=== PATIENT | male | born 1955 | race Caucasian/White ===

== ENCOUNTER 2023-11-17 15:15 | Oncology outpatient (recurring) (ONCR) | payer OTHER, SELFPAY ==
--- NOTE | 2023-11-09 16:42 | N.ONRAD NP_ITS ---
Radiation Oncology New Patient Visit Patient: Joanna Burnett MR#: [id number] : 1955> Age: 67> Sex: Male> Dictated by: Jett Soares Date of Service: 11/09/2023 Referring Physician(s) : Sincere Diaz MD urologist Diagnosis: C61 - malignant neoplasm of prostate, Diagnosed 09/30/2023 (active). Radiotherapy to date: Summary > No prior radiation therapy. Chief Complaint / History of Present Illness: Patient reports a history of gradually elevating PSA. Records indicate his last PSA was 19 with a prostate volume of 65 g. Ultrasound-guided biopsy of the prostate September 30, 2023 revealed adenocarcinoma in 1 core in the right apex, [place] 7 (3+4) grade group 2. PSMA PET scan October 18, 2023 revealed a 5 cm diameter prostate with a maximum SUV 5.8 in the anterior apex. The right anterior and posterior transition zone at the mid level demonstrated a maximum SUV value of 24.95. There was no pathologic lymphadenopathy. No focal abnormality of tracer accumulation was identified in bones or muscle. The patient is present today with his of 33 years. International prostate symptom score was 29 with sensation of incomplete emptying and weak stream as his worst complaint. Overall quality of life due to urinary symptoms was rated at 6 (terrible). Patient reports that he is not sexually active. Current Medications: Lisinopril, vitamin D3, tamsulosin, Crestor, isosorbide, Effexor, Jardiance, co-Q10, multivitamin, nitroglycerin, fish oil, and aspirin 81 mg. Medical History: No history of collagen vascular disease. No previous radiation therapy. History of elevated triglycerides and heart disease. Surgical History: Cardiac stent placed 2011, fractured jaw in the , varicose vein surgery around 1993, hernia surgery also around 1993. Family History: Patient states he is adopted. 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 He is a non-smoker and drinks about a sixpack of beer per week. He was in the [employer] and stationed in [place]. 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 He grew up in [facility]. He and his owns 40 acres locally and enjoyed gardening. Current Complaints / Review of Systems: . Vital Signs: Performed on 11/09/2023 3:21 PM Weight - 197.8 lbs, Temperature - 97.7 f, Pulse - 65 /min, Respiration - 18 /min, O2 Sat - 95 % (low), Pain - 0, Fatigue - 0 and BP - 137/ 70 mm(hg). Physical Exam: Alert and oriented male appearing his stated age. PERRL, EOMI. Cranial nerves II through XII grossly intact. Tongue and uvula midline and mobile. Speech intact. No cervical, supraclavicular or axillar adenopathy. Lungs clear to auscultation. Cardiovascular Drew reveals regular rhythm. Abdomen soft nontender. Bowel sounds present normoactive. Patient declines rectal exam. Upper and lower extremities intact without edema. Patient ambulatory without assistance. Performance Status: ECOG 0 Pathology: Primary, c61 - malignant neoplasm of prostate, Diagnosed 09/30/2023 (active) . Impression: Patient has a favorable intermediate stage IIB T1 N0 M0 adenocarcinoma of the prostate involving 1 core at the right apex, [place] 7 (3+4) grade group 2. His PSA was 19 ng/mL. Plan: Patient is a candidate for definitive radiation therapy. He has an appointment with medical oncology to discuss possibility of androgen deprivation therapy. The potential risks, benefits and side effects of external beam radiation therapy were reviewed with the patient and his was also present. Patient indicates his understanding and willingness to proceed with treatment. He indicates he is undecided yet about whether or not to undergo androgen deprivation therapy. If he elects to undergo androgen deprivation therapy treatment planning would take place about 1 month after the start of ADT. Plan would be to deliver hypofractionated radiation therapy (IMRT) of 70 Reid total at 250 cGy per fraction over 28 fractions. Signed by: 11/09/2023 4:40:59 PM <<Signature on File>> Time spent with patient: 60 minutes CPT Code: CPT Code:
[2023-11-17] MEDS: leuprolide 22.5 mg Kit IM (15:57)
== END 2023-11-17 23:59 | disposition home or self-care (01) ==
PROVIDERS: PCP Nurse Practitioner Family; Visit Provider Radiology Radiation Oncology
DX: Z51.11 Encounter for antineoplastic chemotherapy (principal); C61 Malignant neoplasm of prostate; Z79.899 Other long term (current) drug therapy; Z53.9 Procedure and treatment not carried out, unspecified reason
CPT/HCPCS: 77300; 77301; 77338; 96401; 99205; J9217

== ENCOUNTER 2023-12-15 08:00 | Oncology outpatient (recurring) (ONCR) | payer OTHER, SELFPAY | END 2023-12-18 23:59 | disposition home or self-care (01) | PROVIDERS: Internal Medicine Medical Oncology; PCP Nurse Practitioner Family; Visit Provider Radiology Radiation Oncology | DX: Z51.0 Encounter for antineoplastic radiation therapy (principal); C61 Malignant neoplasm of prostate | CPT/HCPCS: 36415; 77334; 77470; 84153 ==

== ENCOUNTER 2023-12-29 08:34 | Oncology outpatient (recurring) (ONCR) | payer OTHER, SELFPAY ==
--- NOTE | 2023-12-21 09:18 | ONCRAD TMN_ITS ---
Radiation Oncology Weekly Treatment Management Patient: Joanna Burnett MR#: [id number] : 1955 Attending Physician: Dr. Sofi Kline Date of Service: 12/21/2023 Fractions: Referring Physician(s) : Diagnosis: C61 - Malignant neoplasm of prostate, Diagnosed 09/30/2023 (Active) Radiotherapy to date: Course: Prostate 70 Gy, Treatment Site: Prostate 70Gy, Ref. ID: [id number], Energy: 15X, Dose/Fx (cGy): 250, #Fx: , Dose Correction (cGy): 0, Total Dose Delivered (cGy): 500, Start Date: 12/20/2023, Elapsed Days: 1 Reason for visit: The patient is being seen today as part of their regularly scheduled weekly on treatment visits to assess for acute toxicities from radiotherapy. Review of Systems: Patient had no additional questions today. He has not noticed no changes. Vital Signs: Performed on 12/21/2023 9:04 AM BMI - 43.27 kg/m2 (high), Height - 56 in, Weight - 193 lbs, Temperature - 97 f, Pulse - 61 /min, Respiration - 16 /min, O2 Sat - 98 %, Pain - 0, Fatigue - 0 and BP - 147/ 76 mm(hg)(high/). Physical Exam: No changes on exam Imaging: Radiation therapy imaging related to accurate target localization (i.e. KV, MV and CBCT) was reviewed. Appropriate changes, if any, were made to ensure treatment accuracy. Plan: Will continue with treatments as planned. I reassured him about the feeling of his bladder. Signed by: Dr. Sofi Kline 12/21/2023 9:16:44 AM
--- NOTE | 2023-12-27 09:09 | ONCRAD TMN_ITS ---
Radiation Oncology Weekly Treatment Management Patient: Joanna Burnett MR#: [id number] : 1955 Attending Physician: Dr. Sofi Kline Date of Service: 12/27/2023 Fractions: 6 out of 28 Referring Physician(s) : Diagnosis: C61 - Malignant neoplasm of prostate, Diagnosed 09/30/2023 (Active) Radiotherapy to date: Course: Prostate 70 Gy, Treatment Site: Prostate 70Gy, Ref. ID: [id number], Energy: 15X, Dose/Fx (cGy): 250, #Fx: , Dose Correction (cGy): 0, Total Dose Delivered (cGy): 1,500, Start Date: 12/20/2023, Elapsed Days: 7 Reason for visit: The patient is being seen today as part of their regularly scheduled weekly on treatment visits to assess for acute toxicities from radiotherapy. Review of Systems: Patient has noticed that if he does not drink enough water he has a little more trouble emptying his bladder. He on occasion has some dysuria. This is not any different than normal. Vital Signs: Performed on 12/27/2023 8:47 AM BMI - 43.001 kg/m2 (high), Height - 56 in, Weight - 191.8 lbs, Temperature - 97.5 f, Pulse - 59 /min (low), Respiration - 16 /min, O2 Sat - 97 %, Pain - 3, Fatigue - 3 and BP - 134/ 74 mm(hg). Physical Exam: No changes on exam Imaging: Radiation therapy imaging related to accurate target localization (i.e. KV, MV and CBCT) was reviewed. Appropriate changes, if any, were made to ensure treatment accuracy. Plan: Will continue with his treatment as planned. I did encourage him to drink more water. I reassured him that the changes currently are most likely from a little bit of swelling with the first week of treatment. They should start to resolve in the next week or so. Signed by: Dr. Sofi Kline 12/27/2023 9:08:22 AM
== END 2023-12-29 23:59 | disposition home or self-care (01) ==
PROVIDERS: PCP Nurse Practitioner Family; Visit Provider Radiology Radiation Oncology
DX: Z51.0 Encounter for antineoplastic radiation therapy (principal); C61 Malignant neoplasm of prostate
CPT/HCPCS: 77300; 77301; 77336; 77338; 77385; 99024

== ENCOUNTER 2024-01-17 08:34 | Oncology outpatient (recurring) (ONCR) | payer OTHER, SELFPAY ==
--- NOTE | 2024-01-10 09:15 | ONCRAD TMN_ITS ---
Radiation Oncology Weekly Treatment Management Patient: Joanna Burnett MR#: [id number] : 1955 Attending Physician: Dr. Sofi Kline Date of Service: 01/10/2024 Fractions: 16 out of 28 Referring Physician(s) : Diagnosis: C61 - Malignant neoplasm of prostate, Diagnosed 09/30/2023 (Active) Radiotherapy to date: Course: Prostate 70 Gy, Treatment Site: Prostate 70Gy, Ref. ID: [id number], Energy: 15X, Dose/Fx (cGy): 250, #Fx: 16 , Dose Correction (cGy): 0, Total Dose Delivered (cGy): 4,000, Start Date: 12/20/2023, Elapsed Days: 21 Reason for visit: The patient is being seen today as part of their regularly scheduled weekly on treatment visits to assess for acute toxicities from radiotherapy. Review of Systems: Patient tried the Azo last week with good relief. He is using it as needed. He continues to get up every 2-3 hours to urinate. He is somewhat fatigued today as he did not sleep well. Vital Signs: Performed on 01/10/2024 8:44 AM BMI - 30.99 kg/m2 (high), Height - 66 in, Weight - 192 lbs, Temperature - 97 f, Pulse - 66 /min, Respiration - 16 /min, O2 Sat - 98 %, Pain - 0, Fatigue - 7 and BP - 124/ 61 mm(hg)(/low). Physical Exam: No changes on exam Imaging: Radiation therapy imaging related to accurate target localization (i.e. KV, MV and CBCT) was reviewed. Appropriate changes, if any, were made to ensure treatment accuracy. Plan: Will continue with his treatments as planned. We did talk about his follow-up a month after he has done with the PSA at that time. Signed by: Dr. Sofi Kline 01/10/2024 9:14:02 AM
== END 2024-01-17 23:59 | disposition home or self-care (01) ==
PROVIDERS: PCP Nurse Practitioner Family; Visit Provider Radiology Radiation Oncology
DX: Z51.0 Encounter for antineoplastic radiation therapy (principal); C61 Malignant neoplasm of prostate
CPT/HCPCS: 77336; 77385; 99024

== ENCOUNTER 2024-02-09 11:00 | Oncology outpatient (recurring) (ONCR) | payer OTHER, SELFPAY ==
--- NOTE | 2024-01-18 22:44 | ONCRAD TMN_ITS ---
Radiation Oncology Weekly Treatment Management Patient: Joanna Burnett MR#: [id number] : 1955 Attending Physician: Gennaro Garcia Date of Service: 01/18/2024 Referring Physician(s) : Diagnosis: C61 - Malignant neoplasm of prostate, Diagnosed 09/30/2023 (Active) Radiotherapy to date: Course: Prostate 70 Gy, Treatment Site: Prostate 70Gy, Ref. ID: [id number], Energy: 15X, Dose/Fx (cGy): 250, #Fx: , Dose Correction (cGy): 0, Total Dose Delivered (cGy): 5,500, Start Date: 12/20/2023, Elapsed Days: 29 Reason for visit: The patient is being seen today as part of their regularly scheduled weekly on treatment visits to assess for acute toxicities from radiotherapy. Review of Systems: No complaints. Using both Flomax and Azo with resolution of urinary burning. Walking dog. Stable 2 to 4 x nocturia. Vital Signs: Performed on 01/18/2024 8:50 AM BMI - 30.828 kg/m2 (high), Height - 66 in, Weight - 191 lbs, Temperature - 97.5 f, Pulse - 57 /min (low), Respiration - 16 /min, O2 Sat - 98 %, Pain - 0, Fatigue - 6 and BP - 159/ 79 mm(hg)(high/). Physical Exam: Imaging: Radiation therapy imaging related to accurate target localization (i.e. KV, MV and CBCT) was reviewed. Appropriate changes, if any, were made to ensure treatment accuracy. Plan: Good tolerance of treatment. Alter Flomax to 2 after dinner. Continue as planned. Signed by: Gennaro Garcia 01/18/2024 10:41:55 PM Telemedicine Consent Patient seen today via Telemedicine by agreement and consent of patient. Telemedicine technology used during the visit include audio and, as available, review of images. This patient encounter is appropriate and reasonable under the circumstances given the patient???s particular presentation at this time. The patient has been advised of the potential risks and limitations of this mode of treatment (including but not limited to the absence of in-person examination) and has agreed to be treated in a remote fashion in spite of them. Any and all of the patient???s/patient???s family???s questions on this issue have been answered and I have made no promises or guarantees to the patient. The patient has also been advised to contact this office for worsening conditions or problems, and seek emergency medical treatment and/or call 911 if the patient deems either necessary.
--- NOTE | 2024-01-24 13:45 | ONCRAD TMN_ITS ---
Radiation Oncology Weekly Treatment Management Patient: Joanna Burnett MR#: [id number] : 1955 Attending Physician: Gennaro Garcia Date of Service: 01/24/2024 Referring Physician(s) : Diagnosis: C61 - Malignant neoplasm of prostate, Diagnosed 09/30/2023 (Active) Radiotherapy to date: Course: Prostate 70 Gy, Treatment Site: Prostate 70Gy, Ref. ID: [id number], Energy: 15X, Dose/Fx (cGy): 250, #Fx: , Dose Correction (cGy): 0, Total Dose Delivered (cGy): 6,500, Start Date: 12/20/2023, Elapsed Days: 35 Reason for visit: The patient is being seen today as part of their regularly scheduled weekly on treatment visits to assess for acute toxicities from radiotherapy. Review of Systems: More fatigued and worse over the weekend. Slept most of Tuesday. He continues to have q 1 hr nocturia. On Flomax 1 q AM. Bowels ok. Buring dysuria better with Azo. Hot flashes from ADT. Vital Signs: Performed on 01/24/2024 8:40 AM BMI - 30.828 kg/m2 (high), Height - 66 in, Weight - 191 lbs, Temperature - 97.3 f, Pulse - 65 /min, Respiration - 16 /min, O2 Sat - 96 %, Pain - 0, Fatigue - 6 and BP - 145/ 79 mm(hg)(high/). Physical Exam: Good tolerance of treatment. Continue as planned. Imaging: Radiation therapy imaging related to accurate target localization (i.e. KV, MV and CBCT) was reviewed. Appropriate changes, if any, were made to ensure treatment accuracy. Plan: Signed by: Gennaro Garcia 01/24/2024 1:44:09 PM
--- NOTE | 2024-01-26 09:42 | N.ONRD TS_ITS ---
Radiation Oncology Treatment Summary Patient: Joanna Burnett MR#:[id number] : 1955 Age: 68 Sex: Male Dictated by: Gennaro Garcia Date of Service: 01/26/2024 Referring Physician(s) : Diagnosis: C61 - Malignant neoplasm of prostate, Diagnosed 09/30/2023 (Active) Radiotherapy to Date: Course: Prostate 70 Gy, Treatment Site: Prostate 70Gy, Ref. ID: [id number], Energy: 15X, Dose/Fx (cGy): 250, #Fx: 28 / 28, Dose Correction (cGy): 0, Total Dose Delivered (cGy): 7,000, Start Date: 12/20/2023, End Date: 01/26/2024, Elapsed Days: 37 Clinical Summary: The patient tolerated RT well.He did have increased nocturia to 1 time a n hour at the end of treatment despite being on Flomax 1 per day. Burning dysuria responded well to Azo. He had no bowel sxs. He had significant hot flashes from ADT but did not want treatment for this. Plan: End of treatment today. Continue on the above medication until urinary symptoms resolve. Follow up in one month with first post treatment PSA. Signed by: Gennaro Garcia>01/26/2024 9:40:59 AM <<Signature on File>>
[2024-02-09 11:10] LABS: Basophils % 0.7 %; Eosinophils # 0.1 10^3/uL (0.0-0.8); Eosinophils % 1.9 %; Hematocrit 38.9 % (37-53); Lymphocytes # 0.8 10^3/uL (0.8-4.8); Lymphocytes % 19.5 %; Mean Corpuscular Hemoglobin 33.5 pg (27-33); Mean Corpuscular Volume 93.1 fl (82-101); Mean Platelet Volume 10.5 fL (7.4-10.4); Monocytes # 0.4 10^3/uL (0.2-0.9); Monocytes % 9.9 %; Neutrophils # 2.87 10^3/uL (1.8-7.7); Neutrophils % 67.3 %; Nucleated Red Blood Cells % 0 %; Platelet Count 124 10^3/cmm (157-399); Red Blood Count 4.18 10^6/uL (3.85-5.65); Red Cell Distribution Width 13.3 % (12.1-15.1); White Blood Count 4.26 10^3/uL (3.29-11.43)
[2024-02-09 11:37] LABS: Alanine Aminotransferase 20 U/L (0-41); Albumin Level 4.2 g/dL (3.5-5.2); Alkaline Phosphatase 68 U/L (40-130); Anion Gap 17.3 (5-19); Aspartate Amino Transferase 17 U/L (0-40); Blood Urea Nitrogen 28 mg/dL (8-23); Calcium 9.5 mg/dL (8.5-10.5); Carbon Dioxide 23 mmol/L (22-29); Chloride 102 mmol/L (98-107); Globulin 2.8 g/dL (1.3-4.6); Glomerular Filtration Rate 84.2 mL/min (90-130); Glucose 158 mg/dL (65-115); Osmolality Calculated 295 mOsm/kg (285-295); Potassium 4.3 mmol/L (3.5-5.1); Prostate Specific Antigen 0.456 ng/mL (0-4); Sodium 138 mmol/L (136-145); Testosterone Total 2.5 ng/dL (193-740); Total Bilirubin 0.9 mg/dL (0.15-1.2)
[2024-02-09] MEDS: leuprolide 22.5 mg Kit IM (13:16)
[2024-02-09 13:21] VITALS: BP 105/62; PULSE 67; RESP 18; O2SAT 96
== END 2024-02-09 23:59 | disposition home or self-care (01) ==
PROVIDERS: Internal Medicine Medical Oncology; PCP Nurse Practitioner Family; Visit Provider Radiology Radiation Oncology
DX: C61 Malignant neoplasm of prostate; Z53.9 Procedure and treatment not carried out, unspecified reason; Z51.11 Encounter for antineoplastic chemotherapy; Z79.818 Long term (current) use of other agents affecting estrogen receptors and estrogen levels
CPT/HCPCS: 36415; 77336; 77385; 80053; 84153; 84403; 85025; 96402; 99024; 99213; J9217

== ENCOUNTER 2024-02-29 08:20 | Oncology outpatient (recurring) (ONCR) | payer OTHER, SELFPAY ==
[2024-02-28 15:01] LABS: Prostate Specific Antigen 0.265 ng/mL (0-4)
--- NOTE | 2024-02-29 09:23 | ONCRAD EPV_ITS ---
Radiation Oncology Established Patient Visit Patient: Joanna Burnett [id number] : 1955 Age: 68 Sex: Male Dictated by: Dr. Sofi Kline Date of Service: 02/29/2024 Referring Physician(s) : Diagnosis: C61 - Malignant neoplasm of prostate, Diagnosed 09/30/2023 (Active) Subjective: Patient returns today for his first month check. He has a good appetite. He denies any new aches or pains. He is sleeping well. His energy level is returned. His bowel bladder habits have returned to normal. His current PSA is 0.265. He gets his next ADT in April when he will get his PSA checked again. He did have some questions about noticing that the heat and the humidity have bothered him a little bit quicker than normal. Radiotherapy to Date: Course: Prostate 70 Gy, Treatment Site: Prostate 70Gy, Ref. ID: [id number], Energy: 15X, Dose/Fx (cGy): 250, #Fx: 28 / 28, Dose Correction (cGy): 0, Total Dose Delivered (cGy): 7,000, Start Date: 12/20/2023, End Date: 01/26/2024, Elapsed Days: 37 Current History: Current Medications: Allergies: Current Complaints / Review of Systems: . Vital Signs: Performed on 02/29/2024 8:32 AM BMI - 30.635 kg/m2 (high), Height - 66 in, Weight - 189.8 lbs, Temperature - 97.8 f, Pulse - 57 /min (low), Respiration - 16 /min, O2 Sat - 98 %, Pain - 0, Fatigue - 2 and BP - 125/ 64 mm(hg)(/low). Physical Exam: General: Alert and oriented x 3. No acute distress. HEENT: Normocephalic atraumatic. Pupils are equal, sclera clear, extraocular muscles intact LUNGS: Respiratory rate is regular nonlabored. HEART: Regular rate and rhythm,. ABDOMEN: Mildly protuberant and android pattern EXTREMITIES: No peripheral edema is identified. NEUROLOGIC: Alert and orient x 3. Gait and speech within normal limits Performance Status: 100 Lab: None pending. Pathology: Primary, c61 - malignant neoplasm of prostate, Diagnosed 09/30/2023 (active) . Imaging: See HPI Impression: Adenocarcinoma the prostate status post external beam radiation having completed treatments 1 month ago Plan: At this time he is recovering nicely from his treatments. He will be getting his ADT in April with another PSA. I reviewed with him how the PSA will begin to go up once he has completed his ADT. He verbalized understanding of this. At this point I have set him up to get his PSA drawn every 3 months with a follow-up in a year or he will call if any problems should arise in the interim. We did talk at length today about how his baseline level of endurance may be a little lower than normal but how he should be very careful monitoring the temperature in the humidity. Signed by: 02/29/2024 9:21:49 AM <<Signature on File>> Time spent with patient:20 CPT Code: CPT Code:
== END 2024-03-18 23:59 | disposition home or self-care (01) ==
PROVIDERS: Radiology Radiation Oncology; PCP Nurse Practitioner Family; Visit Provider Radiology Radiation Oncology
DX: C61 Malignant neoplasm of prostate; Z92.3 Personal history of irradiation; Z79.899 Other long term (current) drug therapy
CPT/HCPCS: 36415; 84153

== ENCOUNTER 2024-05-03 12:03 | Oncology outpatient (recurring) (ONCR) | payer OTHER, SELFPAY ==
[2024-05-03 13:12] LABS: Basophils % 0.8 %; Eosinophils # 0.1 10^3/uL (0.0-0.8); Eosinophils % 1.6 %; Lymphocytes % 20.4 %; Mean Corpuscular HGB Conc 35.8 g/dL (30-55); Mean Corpuscular Hemoglobin 33.9 pg (27-33); Mean Corpuscular Volume 94.8 fl (82-101); Mean Platelet Volume 11.1 fL (7.4-10.4); Monocytes # 0.5 10^3/uL (0.2-0.9); Monocytes % 9.4 %; Neutrophils # 3.27 10^3/uL (1.8-7.7); Nucleated Red Blood Cells % 0 %; Platelet Count 101 10^3/cmm (157-399); Red Blood Count 4.22 10^6/uL (3.85-5.65); Red Cell Distribution Width 12.4 % (12.1-15.1); White Blood Count 4.89 10^3/uL (3.29-11.43)
[2024-05-03 13:47] LABS: Alanine Aminotransferase 20 U/L (0-41); Albumin Level 4.2 g/dL (3.5-5.2); Alkaline Phosphatase 73 U/L (40-130); Anion Gap 18.9 (5-19); Aspartate Amino Transferase 15 U/L (0-40); Blood Urea Nitrogen 22 mg/dL (8-23); Calcium 9.1 mg/dL (8.5-10.5); Carbon Dioxide 21 mmol/L (22-29); Chloride 101 mmol/L (98-107); Globulin 2.5 g/dL (1.3-4.6); Glomerular Filtration Rate 96.4 mL/min (90-130); Glucose 115 mg/dL (65-115); Osmolality Calculated 288 mOsm/kg (285-295); Potassium 3.9 mmol/L (3.5-5.1); Prostate Specific Antigen 0.115 ng/mL (0-4); Sodium 137 mmol/L (136-145); Testosterone Total 2.5 ng/dL (193-740); Total Bilirubin 0.7 mg/dL (0.15-1.2); Total Protein 6.7 g/dL (6.6-8.7)
[2024-05-03] MEDS: leuprolide 22.5 mg Kit IM (15:10)
== END 2024-05-19 23:59 | disposition home or self-care (01) ==
PROVIDERS: Nurse Practitioner Family; PCP Nurse Practitioner Family; Visit Provider Radiology Radiation Oncology
DX: C61 Malignant neoplasm of prostate (principal); Z92.3 Personal history of irradiation; Z79.899 Other long term (current) drug therapy; Z51.11 Encounter for antineoplastic chemotherapy; Z79.818 Long term (current) use of other agents affecting estrogen receptors and estrogen levels; L98.9 Disorder of the skin and subcutaneous tissue, unspecified
CPT/HCPCS: 36415; 80053; 84153; 84403; 85025; 96402; 99214; J9217

== ENCOUNTER 2024-07-26 11:24 | Oncology outpatient (recurring) (ONCR) | payer OTHER, SELFPAY ==
[2024-07-26 12:03] LABS: Basophils % 0.4 %; Eosinophils # 0.1 10^3/uL (0.0-0.8); Eosinophils % 1.1 %; Hematocrit 41.2 % (37-53); Lymphocytes # 1.2 10^3/uL (0.8-4.8); Lymphocytes % 21.4 %; Mean Corpuscular Hemoglobin 32.7 pg (27-33); Mean Corpuscular Volume 93.4 fl (82-101); Mean Platelet Volume 11.7 fL (7.4-10.4); Monocytes # 0.4 10^3/uL (0.2-0.9); Monocytes % 8.2 %; Neutrophils # 3.67 10^3/uL (1.8-7.7); Neutrophils % 68.3 %; Nucleated Red Blood Cells % 0 %; Platelet Count 119 10^3/cmm (157-399); Red Blood Count 4.41 10^6/uL (3.85-5.65); Red Cell Distribution Width 12.9 % (12.1-15.1); White Blood Count 5.37 10^3/uL (3.29-11.43)
[2024-07-26 12:23] LABS: Alanine Aminotransferase 20 U/L (0-41); Albumin Level 4.3 g/dL (3.5-5.2); Alkaline Phosphatase 71 U/L (40-130); Anion Gap 17.2 (5-19); Aspartate Amino Transferase 19 U/L (0-40); Blood Urea Nitrogen 19 mg/dL (8-23); Calcium 8.9 mg/dL (8.5-10.5); Carbon Dioxide 23 mmol/L (22-29); Chloride 103 mmol/L (98-107); Globulin 2.2 g/dL (1.3-4.6); Glomerular Filtration Rate 112.5 mL/min (90-130); Glucose 135 mg/dL (65-115); Osmolality Calculated 292 mOsm/kg (285-295); Potassium 4.2 mmol/L (3.5-5.1); Sodium 139 mmol/L (136-145); Testosterone Total 2.5 ng/dL (193-740); Total Bilirubin 0.8 mg/dL (0.15-1.2); Total Protein 6.5 g/dL (6.6-8.7)
[2024-07-26] MEDS: leuprolide 22.5 mg Kit IM (14:51)
== END 2024-08-18 23:59 | disposition home or self-care (01) ==
PROVIDERS: Nurse Practitioner Family; Radiology Radiation Oncology; PCP Nurse Practitioner Family; Visit Provider Internal Medicine Hematology & Oncology
DX: Z51.11 Encounter for antineoplastic chemotherapy (principal); C61 Malignant neoplasm of prostate; Z92.3 Personal history of irradiation; Z79.899 Other long term (current) drug therapy; Z79.818 Long term (current) use of other agents affecting estrogen receptors and estrogen levels; L98.9 Disorder of the skin and subcutaneous tissue, unspecified
CPT/HCPCS: 80053; 84153; 84403; 85025; 96401; 99214; J9217

== ENCOUNTER 2024-11-01 11:15 | Oncology outpatient (recurring) (ONCR) | payer OTHER, SELFPAY ==
[2024-11-01 12:16] LABS: Basophils % 0.5 %; Eosinophils # 0.1 10^3/uL (0.0-0.8); Eosinophils % 1.1 %; Hematocrit 34.4 % (37-53); Lymphocytes # 0.7 10^3/uL (0.8-4.8); Lymphocytes % 13.1 %; Mean Corpuscular HGB Conc 35.2 g/dL (30-55); Mean Corpuscular Volume 93.7 fl (82-101); Mean Platelet Volume 10.9 fL (7.4-10.4); Monocytes # 0.5 10^3/uL (0.2-0.9); Monocytes % 8.6 %; Neutrophils # 4.18 10^3/uL (1.8-7.7); Neutrophils % 76.3 %; Nucleated Red Blood Cells % 0 %; Platelet Count 131 10^3/cmm (157-399); Red Blood Count 3.67 10^6/uL (3.85-5.65); Red Cell Distribution Width 12.4 % (12.1-15.1); White Blood Count 5.48 10^3/uL (3.29-11.43)
[2024-11-01 12:40] LABS: Alanine Aminotransferase 14 U/L (0-41); Albumin Level 4.1 g/dL (3.5-5.2); Alkaline Phosphatase 77 U/L (40-130); Anion Gap 17.9 (5-19); Aspartate Amino Transferase 16 U/L (0-40); Blood Urea Nitrogen 12 mg/dL (8-23); Calcium 9.4 mg/dL (8.5-10.5); Carbon Dioxide 22 mmol/L (22-29); Chloride 102 mmol/L (98-107); Globulin 2.8 g/dL (1.3-4.6); Glomerular Filtration Rate 134.4 mL/min (90-130); Glucose 125 mg/dL (65-115); Osmolality Calculated 287 mOsm/kg (285-295); Potassium 3.9 mmol/L (3.5-5.1); Sodium 138 mmol/L (136-145); Testosterone Total 6.9 ng/dL (193-740); Total Protein 6.9 g/dL (6.6-8.7)
== END 2024-11-16 23:59 | disposition home or self-care (01) ==
PROVIDERS: Nurse Practitioner Family; PCP Nurse Practitioner Family; Visit Provider Internal Medicine
DX: C61 Malignant neoplasm of prostate (principal); Z92.3 Personal history of irradiation; Z79.899 Other long term (current) drug therapy; Z79.818 Long term (current) use of other agents affecting estrogen receptors and estrogen levels; Z92.21 Personal history of antineoplastic chemotherapy
CPT/HCPCS: 36415; 80053; 84153; 84403; 85025; 99213

== ENCOUNTER 2025-02-14 08:25 | Oncology outpatient (recurring) (ONCR) | payer OTHER, SELFPAY ==
[2025-02-14 08:59] LABS: Basophils % 0.6 %; Eosinophils # 0.1 10^3/uL (0.0-0.8); Eosinophils % 1.5 %; Hematocrit 39.9 % (37-53); Lymphocytes # 1.1 10^3/uL (0.8-4.8); Lymphocytes % 22.7 %; Mean Corpuscular HGB Conc 35.8 g/dL (30-55); Mean Corpuscular Hemoglobin 32.9 pg (27-33); Mean Corpuscular Volume 91.7 fl (82-101); Mean Platelet Volume 11.7 fL (7.4-10.4); Monocytes # 0.4 10^3/uL (0.2-0.9); Neutrophils # 3.17 10^3/uL (1.8-7.7); Neutrophils % 66.8 %; Nucleated Red Blood Cells % 0 %; Platelet Count 146 10^3/cmm (157-399); Red Blood Count 4.35 10^6/uL (3.85-5.65); Red Cell Distribution Width 13.1 % (12.1-15.1); White Blood Count 4.75 10^3/uL (3.29-11.43)
[2025-02-14 09:24] LABS: Alanine Aminotransferase 14 U/L (0-41); Albumin Level 4.3 g/dL (3.5-5.2); Alkaline Phosphatase 79 U/L (40-130); Anion Gap 18.2 (5-19); Aspartate Amino Transferase 14 U/L (0-40); Blood Urea Nitrogen 20 mg/dL (8-23); Calcium 9.5 mg/dL (8.5-10.5); Carbon Dioxide 20 mmol/L (22-29); Chloride 101 mmol/L (98-107); Globulin 2.7 g/dL (1.3-4.6); Glomerular Filtration Rate 112.1 mL/min (90-130); Glucose 152 mg/dL (65-115); Lactate Dehydrogenase 173 U/L (135-225); Osmolality Calculated 286 mOsm/kg (285-295); Potassium 4.2 mmol/L (3.5-5.1); Prostate Specific Antigen 0.031 ng/mL (0-4); Sodium 135 mmol/L (136-145); Testosterone Total 3.2 ng/dL (193-740); Total Bilirubin 0.6 mg/dL (0.15-1.2)
== END 2025-02-16 23:59 | disposition home or self-care (01) ==
PROVIDERS: PCP Nurse Practitioner Family; Visit Provider Internal Medicine
DX: Z08 Encounter for follow-up examination after completed treatment for malignant neoplasm (principal); Z85.46 Personal history of malignant neoplasm of prostate; R03.0 Elevated blood-pressure reading, without diagnosis of hypertension; L98.9 Disorder of the skin and subcutaneous tissue, unspecified; R23.2 Flushing
CPT/HCPCS: 36415; 80053; 83615; 84153; 84403; 85025; 99214

== ENCOUNTER 2025-05-09 08:41 | Oncology outpatient (recurring) (ONCR) | payer OTHER, SELFPAY ==
[2025-05-09 09:05] LABS: Hematocrit 37.4 % (37-53); Hemoglobin 13.30 g/dL (11.27-16.99); Mean Corpuscular HGB Conc 35.6 g/dL (30-55); Mean Corpuscular Hemoglobin 33.6 pg (27-33); Mean Corpuscular Volume 94.4 fl (82-101); Nucleated Red Blood Cells % 0 %; Platelet Count 148 10^3/cmm (157-399); Red Blood Count 3.96 10^6/uL (3.85-5.65); White Blood Count 4.07 10^3/uL (3.29-11.43)
[2025-05-09 09:34] LABS: Alanine Aminotransferase 15 U/L (0-41); Albumin Level 4.4 g/dL (3.5-5.2); Alkaline Phosphatase 79 U/L (40-130); Aspartate Amino Transferase 18 U/L (0-40); Blood Urea Nitrogen 22 mg/dL (8-23); Calcium 9.4 mg/dL (8.5-10.5); Carbon Dioxide 20 mmol/L (22-29); Chloride 105 mmol/L (98-107); Creatinine Clr Calc Pharmacy 91.6215; Globulin 2.6 g/dL (1.3-4.6); Glucose 189 mg/dL (65-115); Osmolality Calculated 296 mOsm/kg (285-295); Prostate Specific Antigen 0.021 ng/mL (0-4); Sodium 139 mmol/L (136-145); Total Protein 7.0 g/dL (6.6-8.7)
[2025-05-09 09:40] LABS: Anion Gap 18.3 (5-19); Potassium 4.3 mmol/L (3.5-5.1)
== END 2025-05-19 23:59 | disposition home or self-care (01) ==
PROVIDERS: PCP Nurse Practitioner Family; Visit Provider Internal Medicine
DX: Z08 Encounter for follow-up examination after completed treatment for malignant neoplasm (principal); Z85.46 Personal history of malignant neoplasm of prostate; R03.0 Elevated blood-pressure reading, without diagnosis of hypertension; R53.83 Other fatigue; Z92.3 Personal history of irradiation
CPT/HCPCS: 36415; 80053; 83615; 84153; 84403; 85025; 99213

== ENCOUNTER 2025-08-08 11:10 | Oncology outpatient (recurring) (ONCR) | payer OTHER, SELFPAY ==
[2025-08-08 11:56] LABS: Hematocrit 40.0 % (37-53); Hemoglobin 14.30 g/dL (11.27-16.99); Mean Corpuscular HGB Conc 35.8 g/dL (30-55); Mean Corpuscular Hemoglobin 34.0 pg (27-33); Mean Corpuscular Volume 95.0 fl (82-101); Nucleated Red Blood Cells % 0 %; Platelet Count 139 10^3/cmm (157-399); Red Blood Count 4.21 10^6/uL (3.85-5.65); White Blood Count 4.93 10^3/uL (3.29-11.43)
[2025-08-08 12:24] LABS: Alanine Aminotransferase 16 U/L (0-41); Albumin Level 4.6 g/dL (3.5-5.2); Alkaline Phosphatase 76 U/L (40-130); Anion Gap 15.5 (5-19); Aspartate Amino Transferase 17 U/L (0-40); Blood Urea Nitrogen 21 mg/dL (8-23); Calcium 9.4 mg/dL (8.5-10.5); Carbon Dioxide 22 mmol/L (22-29); Chloride 103 mmol/L (98-107); Globulin 2.4 g/dL (1.3-4.6); Glucose 146 mg/dL (65-115); Osmolality Calculated 288 mOsm/kg (285-295); Potassium 4.5 mmol/L (3.5-5.1); Prostate Specific Antigen 0.029 ng/mL (0-4); Sodium 136 mmol/L (136-145); Total Protein 7.0 g/dL (6.6-8.7)
== END 2025-08-18 23:59 | disposition home or self-care (01) ==
LOC: ONCMED 11:11
PROVIDERS: PCP Nurse Practitioner Family; Visit Provider Internal Medicine
DX: Z08 Encounter for follow-up examination after completed treatment for malignant neoplasm (principal); Z85.46 Personal history of malignant neoplasm of prostate; R03.0 Elevated blood-pressure reading, without diagnosis of hypertension; R53.83 Other fatigue; Z92.3 Personal history of irradiation; Z92.21 Personal history of antineoplastic chemotherapy
CPT/HCPCS: 36415; 80053; 83615; 84153; 84403; 85025; 99214